=== PATIENT | female | born 1980 | race Caucasian/White ===

== ENCOUNTER 2016-12-30 03:53 | Emergency (ER) | payer BC ==
[2016-12-30 04:43] LABS: BASOPHILS 0.2 % (0-2); EOSINOPHILS 1.8 % (0-7); HEMATOCRIT 41.1 % (36.0-48.0); HEMOGLOBIN 14.4 g/dL (12-16); IMMATURE GRANULOCYTES 0.3 % (0-5); LYMPHOCYTES 17.1 % (15-50); MCH 28.7 pg (26.0-34.0); MEAN PLATELET VOLUME 9.8 fL (7.4-10.4); MONOCYTES 10.2 % (2-11); NEUTROPHILS 70.4 % (40-80); PLATELET COUNT 245 10x3/uL (130-400); RBC 5.01 10x6/uL (4.00-5.40); RDW 12.5 % (11.5-14.5); WBC 6.3 10x3/uL (4.8-10.8)
[2016-12-30 04:57] LABS: ALKALINE PHOSPHATASE 54 U/L (46-116); ALT (SGPT) 20 U/L (10-68); CALC OSMOLALITY 272 mosm/kg (275-300); CALCIUM 11.4 mg/dL (8.5-10.1); CARBON DIOXIDE 25.5 mmol/L (21.0-32.0); CHLORIDE - SERUM 100 mmol/L (98-107); CREATININE - SERUM 0.8 mg/dL (0.6-1.3); GLUCOSE 107 mg/dL (74-106); POTASSIUM - SERUM 3.7 mmol/L (3.5-5.1); PROTEIN - SERUM 7.9 g/dL (6.4-8.2); SODIUM 137 mmol/L (136-145); UREA NITROGEN 11 mg/dL (7-18); eGFR NON AFRICAN AMERICAN 87 mL/min (90-120)
[2016-12-30 05:00] LABS: TROPONIN-I < 0.017 ng/mL (0.000-0.060)
== END 2016-12-30 05:42 | disposition home or self-care (01) ==
LOC: D.ER 03:53
PROVIDERS: Family Medicine
DX: R07.89 Other chest pain (principal); K21.9 Gastro-esophageal reflux disease without esophagitis; K29.70 Gastritis, unspecified, without bleeding; I10 Essential (primary) hypertension; F17.200 Nicotine dependence, unspecified, uncomplicated

== ENCOUNTER → 2018-06-08 13:47 | Outpatient (CLI) | payer BC | END | disposition home or self-care (01) | LOC: D.CT 13:47 | DX: I88.0 Nonspecific mesenteric lymphadenitis (principal) ==

== ENCOUNTER → 2018-07-06 08:13 | Outpatient (CLI) | payer BC | END | disposition home or self-care (01) | LOC: D.RAD 08:13 | DX: R10.30 Lower abdominal pain, unspecified (principal); I88.0 Nonspecific mesenteric lymphadenitis ==

== ENCOUNTER → 2018-09-23 15:38 | Outpatient (CLI) | payer BC | END | disposition home or self-care (01) | LOC: D.CT 15:38 | DX: I88.0 Nonspecific mesenteric lymphadenitis (principal) ==